=== PATIENT | male | born 1950 | race Caucasian/White ===

== ENCOUNTER → 2020-04-02 | Outpatient (CLI) | payer MEDICARE ==
[~2020-04-02] MED LIST: ATEN25TA PO; ATOR40TA78 PO; ENAL10TA9 PO; FOLI0.4T2 PO; HYDR-2995 PO; NIAC500T9 PO; OMEG-172 PO; SILD100T PO; TRIA15CR2 TD; UBID100C41 PO; VIT1CAPS42 PO; Vitamin D3 PO
== END | disposition home or self-care (01) ==
LOC: STAR 15:13
PROVIDERS: ATTEND Orthopaedic Surgery
DX: Z01.812 Encounter for preprocedural laboratory examination (principal); Z20.828 Contact with and (suspected) exposure to other viral communicable diseases; M75.41 Impingement syndrome of right shoulder; M75.21 Bicipital tendinitis, right shoulder; S48.01 Complete traumatic amputation at shoulder joint; X58.XXXA Exposure to other specified factors, initial encounter; Y93.89 Activity, other specified; Y92.89 Other specified places as the place of occurrence of the external cause; Y99.8 Other external cause status
CPT/HCPCS: 36415; 87635; 93005

== ENCOUNTER 2020-04-06 07:05 | Day surgery (SDC) | payer MEDICARE ==
[~2020-04-06] VITALS: Ht 172.7 cm; Wt 68.3 kg
[2020-04-06] MEDS ORDERED: CHLORHEXIDINE 15 ML UDC MM STA (07:27)
[2020-04-06] MEDS ORDERED: ACETAMINOPHEN 500 MG TABLET PO STA (07:27)
[2020-04-06] MEDS ORDERED: LACTATED RINGERS 1,000 ML IV ONE (07:27)
[2020-04-06 07:38] VITALS: BP 148/75
[2020-04-06] MEDS ORDERED: FENTANYL PF 100 MCG/2ML ONE (07:43)
[2020-04-06] MEDS ORDERED: SUCCINYLCHOLINE 20 MG/ML, 10ML ONE (07:44)
[2020-04-06] MEDS ORDERED: BUPIVACAINE/PF 0.25% ONE ×2 (07:44→08:25)
[2020-04-06] MEDS ORDERED: CEFAZOLIN 1,000 MG ONE (07:44)
[2020-04-06] MEDS ORDERED: DEXAMETHASONE 4 MG/ML, 1ML ONE (07:44)
[2020-04-06] MEDS ORDERED: GLYCOPYRROLATE 0.2MG/1ML, 5ML ONE (07:44)
[2020-04-06] MEDS ORDERED: ROCURONIUM 10MG/ML,5ML ONE (07:44)
[2020-04-06] MEDS ORDERED: PROPOFOL 10 MG/ML, 20ML ONE (07:44)
[2020-04-06] MEDS ORDERED: MIDAZOLAM 1 MG/ML, 2ML ONE (07:44)
[2020-04-06] MEDS ORDERED: ONDANSETRON 2MG/ML, 2ML ONE (07:44)
[2020-04-06] MEDS ORDERED: NEOSTIGMINE 1 MG/ML, 10ML ONE (07:44)
[2020-04-06] MEDS ORDERED: EPINEPHRINE 1 MG/ML, 1ML ONE (08:25)
[2020-04-06] MEDS ORDERED: EPHEDRINE 50 MG/ML, 1ML ONE (09:29)
[2020-04-06] MEDS ORDERED: OXYcodone 5 MG/5 ML ORAL.SOL UDC PO PRN (10:30)
[2020-04-06] MEDS ORDERED: FENTANYL PF 100 MCG/2ML IV PRN (10:30)
[2020-04-06] MEDS ORDERED: LABETALOL 5MG/ML, 20ML IV PRN (10:30)
[2020-04-06] MEDS ORDERED: HYDROmorphone 1 MG/ML, 1ML INJ IVPush PRN (10:30)
[2020-04-06] MEDS ORDERED: PROMETHAZINE 25 MG/ML, 1ML IVPush PRN (10:30)
[2020-04-06] MEDS ORDERED: hydrALAzine 20 MG/ML, 1ML IV PRN (10:30)
[2020-04-06] MEDS ORDERED: METHOCARBAMOL 1,000 MG in DEXTROSE 5% 100 ML IV PRN (10:30)
[2020-04-06] MEDS ORDERED: ONDANSETRON 2MG/ML, 2ML IVPush PRN (10:30)
[2020-04-06] MEDS ORDERED: PROMETHAZINE 25 MG SUPP PR PRN (10:30)
[2020-04-06] MEDS ORDERED: LORazepam 2 MG/ML, 1ML IVPush PRN (10:30)
== END 2020-04-06 12:20 | disposition home or self-care (01) ==
LOC: OUT 07:05
PROVIDERS: ATTEND Orthopaedic Surgery
DX: S46.011A Strain of muscle(s) and tendon(s) of the rotator cuff of right shoulder, initial encounter (principal); S46.111A Strain of muscle, fascia and tendon of long head of biceps, right arm, initial encounter; S43.431A Superior glenoid labrum lesion of right shoulder, initial encounter; M75.41 Impingement syndrome of right shoulder; G89.18 Other acute postprocedural pain; M19.011 Primary osteoarthritis, right shoulder; I10 Essential (primary) hypertension; Z79.899 Other long term (current) drug therapy; Z88.5 Allergy status to narcotic agent; Z82.49 Family history of ischemic heart disease and other diseases of the circulatory system; X58.XXXA Exposure to other specified factors, initial encounter; Y93.89 Activity, other specified; Y92.89 Other specified places as the place of occurrence of the external cause; Y99.8 Other external cause status
CPT/HCPCS: 23430; 29823; 29826; 29827; 64415; C1713; J0171; J0690; J1100; J2405; J2704; J2710; J3010; J7120; J2250; J0330